=== PATIENT | male | born 1970 | race Caucasian/White ===

== ENCOUNTER 2016-10-18 21:50 | Emergency (ER) | payer OTHER ==
[~2016-10-18 21:50] MED LIST: ALBUTHFA INH; FAMO20T PO; OMEP20CA11 PO
== END 2016-10-18 22:02 | disposition left against medical advice (07) ==
LOC: SED 21:50
DX: T17.298A Other foreign object in pharynx causing other injury, initial encounter (principal); Z53.21 Procedure and treatment not carried out due to patient leaving prior to being seen by health care provider